=== PATIENT | male | born 1975 | race Caucasian/White ===

== ENCOUNTER 2022-09-11 19:13 | Emergency (ER) | payer OTHER ==
[~2022-09-11] VITALS: Ht 177.8 cm; Wt 99.8 kg
[2022-09-11 19:57] LABS: HEMATOCRIT 43.9 % (36.7-47.1); MEAN CORPUSCULAR VOLUME 90.7 fL (73.0-96.2); PLATELET COUNT (AUTO) 187 K/uL (152-348)
[2022-09-11 20:09] LABS: ALANINE AMINOTRANSFERASE 16 U/L (16-63); ALKALINE PHOSPHATASE 41 U/L (50-136); ASPARTATE AMINOTRANSFERASE 9 U/L (15-37); BILIRUBIN,DIRECT 0.1 mg/dL (0.0-0.2); BILIRUBIN,TOTAL 0.3 mg/dL (0.2-1.0); CARBON DIOXIDE 22 mmol/L (21-32); CHLORIDE 97 mmol/L (98-107); CREATININE 1.3 mg/dL (0.6-1.3); ETHANOL < 3 MG/DL (0-0); GLUCOSE 106 mg/dL (74-106); POTASSIUM 3.5 mmol/L (3.5-5.1); TOTAL PROTEIN, SERUM 7.3 g/dL (6.4-8.2); UREA NITROGEN, BLOOD 12 mg/dL (7-18)
[2022-09-11] MEDS ORDERED: DIVA125T2 PO (20:57)
[2022-09-11] MEDS ORDERED: LEVE500T9 PO (20:57)
[2022-09-12] MEDS ORDERED: DIVA500T2 PO (00:24)
[2022-09-12] MEDS ORDERED: LEVE1000 PO (00:24)
[2022-09-12 01:11] LABS: *BILIRUBIN,URIN NEGATIVE (NEGATIVE); *CLARITY,URINE CLEAR (CLEAR); *COLOR,URINE YELLOW (YELLOW); *KETONES,URINE NEGATIVE (NEGATIVE); *UROBILINOGEN,URINE 0.2 E.U./dl (NORMAL); LEUKOCYTE ESTERASE ,URINE NEGATIVE (NEGATIVE); NITRITE, URINE NEGATIVE (NEGATIVE); UGLUCOSE NEGATIVE (NEGATIVE)
[2022-09-12 01:17] LABS: *BLOOD, URINE TRACE INTACT (NEGATIVE)
[2022-09-12 01:22] LABS: *AMPHETAMINE, URINE NEGATIVE (NEGATIVE); *CANNABINOID, URINE POSITIVE (NEGATIVE); *COCCAINE, URINE NEGATIVE (NEGATIVE); *OPIATE, URINE NEGATIVE (NEGATIVE); *PHENCYCLIDINE SCREEN,URINE NEGATIVE (NEGATIVE)
--- NOTE | 2022-09-12 01:39 | NUR ---
Dr Villanueva spoke with patient's neurologist from [facility] Dr David Terrazas.
[2022-09-12 02:08] VITALS: BP 130/88
[2022-09-12 05:17] LABS: BACTERIA,URINE NONE SEEN /HPF (NONE SEEN); RBC,URINE 0-3 /HPF (0-3); SQUAMOUS EPITHELIAL CELL,UR FEW /HPF (NONE SEEN); WBC,URINE 0-3 /HPF (0-3)
== END 2022-09-12 02:11 | disposition home or self-care (01) ==
LOC: ER 19:13
DX: G40.409 Other generalized epilepsy and epileptic syndromes, not intractable, without status epilepticus (principal); Z79.899 Other long term (current) drug therapy; R94.31 Abnormal electrocardiogram [ECG] [EKG]
CPT/HCPCS: 36415; 85025; 93005; A4663; G0480